=== PATIENT | female | born 2000 | race Hispanic/Latino ===

== ENCOUNTER → 2023-01-23 09:39 | Outpatient (CLI) | payer OTHER, SELFPAY ==
[2023-01-23 15:09] LABS: Urine N gonorrhoeae NOT DETECTED
[2023-01-23 15:32] LABS: Urine Chlamydia NOT DETECTED
== END ==
PROVIDERS: Visit Provider Specialist
DX: Z34.00 Encounter for supervision of normal first pregnancy, unspecified trimester (principal)
CPT/HCPCS: 87491; 87591

== ENCOUNTER → 2023-01-23 10:13 | Outpatient (CLI) | payer OTHER, SELFPAY ==
[2023-01-23 11:24] LABS: Add Manual Diff / Slide Review NO; Basophils Absolute Auto 0 /uL (0-100); Basophils Percent Auto 0.2 % (0-2); Eosinophils Absolute Auto 0 /uL (0-450); Eosinophils Percent Auto 0.5 % (2-4); Hematocrit 33.2 % (36-46); Hemoglobin 11.8 g/dL (12.0-16.0); Lymphocytes Absolute Auto 1700 /uL (1100-4500); Lymphocytes Percent Auto 18.5 % (25-40); Mean Corpuscular HGB Conc 35.6 % (30-36); Mean Corpuscular Hemoglobin 30.8 PG (26-34); Mean Corpuscular Volume 86.7 fL (80-100); Monocytes Absolute Auto 300 /uL (0-900); Monocytes Percent Auto 3.1 % (3-14); Neutrophils Absolute Auto 7100 /uL (1500-7000); Neutrophils Percent Auto 77.7 % (50-75); Platelet Count 144 X10^3/uL (150-400); Red Blood Cell Count 3.83 X10^6/uL (4.0-5.2); Red Cell Distribution Width 13.5 % (11.6-14.8); White Blood Cell Count 9.1 X10^3/uL (4.5-11.0)
[2023-01-23 17:21] LABS: Hepatitis B Surface Antigen NEGATIVE s/c (NEGATIVE); Rubella Antibody IgG 14.2 IU/mL (>15)
[2023-01-23 17:29] LABS: HIV 1 & 2 Ab/Ag 4th Gen Combo NEGATIVE (NEGATIVE); Hep C Virus Ab w/Reflex Quant NEGATIVE s/c (NEGATIVE)
[2023-01-24 06:09] LABS: RPR Screen Non Reactive (Non Reactive)
[2023-01-24 10:36] LABS: Varicella IgG Antibody 311 index (Immune >165)
[2023-01-25 20:37] LABS: Calc Gestational Age Ultrasound (.); Estriol, Free 1.71 ng/mL (.); Inhibin A, MoM 0.64 (.); Maternal Ethnicity Other (.); Maternal Weight 106 lbs (.); Number of Fetuses No (.); OSBR Risk 1 IN 10000 (.); Results Report (.); Test Results *Screen Negative* (.); hCG, MoM 0.68 (.); hCG, Serum 26917 mIU/mL (.)
== END ==
PROVIDERS: PCP Student in an Organized Health Care Education/Training Program; Referring Provider Obstetrics & Gynecology; Visit Provider Specialist
DX: Z34.00 Encounter for supervision of normal first pregnancy, unspecified trimester (principal)
CPT/HCPCS: 36415; 80055; 82105; 82677; 84702; 86336; 86787; 86803; 86850; 86900; 86901; 87086; 87389; 87491; 87591

== ENCOUNTER → 2023-02-22 12:12 | Outpatient (CLI) | payer OTHER, SELFPAY ==
--- NOTE | 2023-02-22 12:13 | DI.US.S_ITS ---
PROCEDURE: US OB >= 14 WEEKS FETUS INDICATIONS: 20 week anatomy scan OUTSIDE/PRIOR DATING DATA: Last menstrual period (LMP): 09/21/2022. LMP-based estimated date of delivery (RICARDO): 06/28/2023. The calculations are made using the clinical RICARDO of 06/28/2023. TECHNIQUE: Real-time scanning was performed of the fetus, with image documentation and biometric measurements. Endovaginal scanning: Performed COMPARISON: None. FINDINGS: General: A single living intrauterine gestation is present. Presentation: Transverse. Placenta: Placental position is posterior , without previa. Amniotic fluid index: 16.7 cm, normal range is 5-24 cm. Single deepest vertical pocket is 5.2 cm. heart rate: 153 beats per minute. Maternal cervical canal: 3.5 cm long. Normal lower limit is 2.5 cm. biometrics: Biparietal diameter: 5.1 cm, 21 weeks and 3 days Head circumference: 19.1 cm, 21 weeks and 2 days Abdominal circumference: 16.6 cm, 21 weeks and 4 days Femur length: 3.5 cm, 21 weeks and 1 day Clinically estimated gestational age: 22 weeks and 0 days Composite gestational age from present scan: 21 weeks and 3 days Estimated weight and percentile: 418 g, 16th percentile Anatomic survey: Neuro: Ventricles are non-dilated at less than 10 mm. Cisterna magna is normal at 3-11 mm. Cerebellum is normal in size and morphology. Nuchal skin fold: Normal at less than 6 mm between 14-21 weeks gestational age. Face: Nose and lips, facial profile are normal. Spine: No evidence for spina bifida. Heart: 4-chambered heart is present, with normal ventricular outflow tracts. Diaphragm: Diaphragm is intact. Stomach: Left-sided stomach is present. Kidneys: No hydronephrosis. Normal is less than 5 mm in 2nd trimester, less than 7 mm in 3rd trimester. Cord: 3-vessel cord has orthotopic insertion. Bladder: Normal in size. Extremities: All 4 extremities identified. IMPRESSION: 1. Single live intrauterine at twenty-one weeks and 3 days. 2. Normal anatomic survey. Estimated weight is at the 16th percentile. We strive to produce accurate, complete, and clear reports of imaging services. To assist us in improving patient care, this report was composed using standard report templates and voice recognition software. Therefore, it may contain abnormal punctuation, insertions and/or omissions. Occasional wrong-word or sound-alike substitutions may occur. Though we review the report and make efforts to correct it, we do recommend that the report be read carefully in proper context to recognize any text inaccuracies. Dictated by: Deondre Chauhan M.D. on 02/28/2023 at 13:25 Approved by: Deondre Chauhan M.D. on 02/28/2023 at 13:30
== END ==
PROVIDERS: PCP Student in an Organized Health Care Education/Training Program; Referring Provider Specialist; Visit Provider Specialist
DX: Z34.02 Encounter for supervision of normal first pregnancy, second trimester (principal); Z3A.21 21 weeks gestation of pregnancy
CPT/HCPCS: 76811

== ENCOUNTER → 2023-04-01 09:48 | Outpatient (CLI) | payer OTHER, SELFPAY ==
[2023-04-01 11:06] LABS: Hematocrit 34.7 % (36-46)
[2023-04-01 12:48] LABS: GTT (PREG) 1 Hour PP 50gm Dose 128 mg/dL (76-139)
== END ==
PROVIDERS: PCP Student in an Organized Health Care Education/Training Program; Referring Provider Student in an Organized Health Care Education/Training Program; Visit Provider Student in an Organized Health Care Education/Training Program
DX: Z34.92 Encounter for supervision of normal pregnancy, unspecified, second trimester (principal); Z3A.25 25 weeks gestation of pregnancy
CPT/HCPCS: 36415; 82950; 85014; 85018

== ENCOUNTER → 2023-06-13 10:07 | Outpatient (CLI) | payer OTHER, SELFPAY ==
[2023-06-14 11:02] LABS: Strep Grp B PCR NEG for Grp B Strep
== END ==
PROVIDERS: PCP Student in an Organized Health Care Education/Training Program; Visit Provider Student in an Organized Health Care Education/Training Program
DX: Z34.93 Encounter for supervision of normal pregnancy, unspecified, third trimester (principal); Z3A.37 37 weeks gestation of pregnancy
CPT/HCPCS: 87653

== ENCOUNTER 2023-06-25 19:07 | Inpatient (IN) | payer OTHER, SELFPAY ==
[2023-06-25 19:12] VITALS: BP 107/60
[2023-06-25 20:35] LABS: Add Manual Diff / Slide Review NO; Basophils Absolute Auto 0 /uL (0-100); Basophils Percent Auto 0.4 % (0-2); Eosinophils Absolute Auto 100 /uL (0-450); Eosinophils Percent Auto 0.7 % (2-4); Hemoglobin 12.8 g/dL (12.0-16.0); Lymphocytes Absolute Auto 1900 /uL (1100-4500); Mean Corpuscular HGB Conc 34.5 % (30-36); Mean Corpuscular Hemoglobin 30.1 PG (26-34); Mean Corpuscular Volume 87.2 fL (80-100); Monocytes Absolute Auto 500 /uL (0-900); Monocytes Percent Auto 5.8 % (3-14); Neutrophils Absolute Auto 6400 /uL (1500-7000); Neutrophils Percent Auto 72.1 % (50-75); Platelet Count 138 X10^3/uL (150-400); Red Blood Cell Count 4.25 X10^6/uL (4.0-5.2); Red Cell Distribution Width 13.2 % (11.6-14.8); White Blood Cell Count 8.9 X10^3/uL (4.5-11.0)
--- NOTE | 2023-06-25 20:38 | P.HPOB_ITS ---
OB HPI Date/Time Date of admission: 06/25/23 Date Patient Seen: 06/25/23 Time Patient Seen: 20:00 History of Present Condition Chief complaint: induction RICARDO Calculator 2 Estimated Delivery Date Method Current WG Current Estimate 06/28/23 LMP (Certain) 39w 4d : 1 Narrative: G1 here for elective induction of labor. Uncomplicated . No medical history. GBS negative. 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 care: good care Dating criteria OB: LMP confirmed by 2nd trimester US Obstetrical complications: none Medical complications OB: none Indications Indication for induction OB: other Other reason(s) for admission: Elective IOL Preadmission Labs Last OB Lab Results: 2 Blood Type O Positive 01/23/23 10:47 Antibody Screen Negative 01/23/23 10:47 Hematocrit 37.0 % (36-46) 06/25/23 20:25 Hemoglobin 12.8 g/dL (12.0-16.0) 06/25/23 20:25 Hepatitis B Surface Antigen Negative s/c (NEGATIVE) 01/23/23 10 :47 Hepatitis C Antibody Negative s/c (NEGATIVE) 01/23/23 10:47 Rubella Antibody 14.2 IU/mL (>15) L 01/23/23 10:47 Varicella-Zoster IgG Antibody 311 index (Immune >165) 01/23/23 10:47 Glucose 1 Hour 128 mg/dL (76-139) 04/01/23 11:00 Group B Streptococcus (PCR) Neg for grp b strep 06/13/23 10:07 -: Chlamydia screen: negative and Gonorrhea screen: negative Genetic Screens: Quad screen: Normal Evaluation Evaluation Baseline heart rate: 145 Variability: Average (6-10) monitor accelerations: Present Monitor Decelerations: Absent Contraction Frequency (minutes): 5 Uterine Contraction Intensity: Mild Category of Tracing: Reactive Status: Category l Dilation (cm): 1 Effacement (%): 50 Dilation: 1-2 cm Effacement: 40-50% station: -3 Position of cervix: posterior Consistency: medium Mcnulty score: 3 PFSH Surgical History (Updated 01/10/23 @ 11:10 by Sagrario Ohara RN) No pertinent past surgical history Family History (Updated 02/01/23 @ 20:42 by Irina Cornelius) Grandmother Cervical cancer Hypertension Hyperlipidemia Family/Other Lung cancer Mother Diabetes mellitus Hypertension Hyperlipidemia Grandmother Diabetes mellitus Grandfather Diabetes mellitus Family/Other Hyperlipidemia Social History marital status: number of children: 0 household members: spouse lives independently: Yes caregiver/support person: No housing: house pets and animals: Yes (1 cat) education level: college (some college) occupational status: unemployed current occupational exposures/hazards: No special seble needs: No travel history: recent (domestic only) seatbelt use: always water heater temp set < 120 deg: Yes working smoke detector in home: Yes fire extinguisher in home: No carbon monox detector in home: Yes firearms in home: No do you feel safe at home: Yes Smoking Status: Never smoker second hand exposure: No alcohol intake: never substance use type: does not use during the past year weight has: remained stable well-balanced diet: about half the time daily servings fruits/ve-4 caffeine: No Type(s) of exercise: none Meds Home Medications and Allergies Home Medications Medication Instructions Recorded Confirmed Type vitamin-ferrous sulfate tab PO 01/10/23 06/23/23 History 27 mg iron-folic acid 0.8 mg tablet Allergies Allergy/AdvReac Type Severity Reaction Status Date / Time Penicillins Allergy Intermediate Hives Verified 06/23/23 10:28 OB Exam Vital signs Blood Pressure: 107/60 Pulse Rate: 73 Temperature: 36.1 F Narrative Exam Narrative: Gravid. NAD, breathing easily. Objective Labs 06/25/23 20:25 Labs: Laboratory Results - last 24 hr 06/25/23 20:25 WBC 8.9 RBC 4.25 Hgb 12.8 Hct 37.0 MCV 87.2 MCH 30.1 MCHC 34.5 RDW 13.2 Plt Count 138 L Neut % (Auto) 72.1 Lymph % (Auto) 21.0 L Emery % (Auto) 5.8 Eos % (Auto) 0.7 L Baso % (Auto) 0.4 Neut # (Auto) 6400 Lymph # (Auto) 1900 Emery # (Auto) 500 Eos # (Auto) 100 Baso # (Auto) 0 Assessment and Plan Assessment and Plan Assessment and Plan narrative: G1 here for elective IOL at 39w4d. Uncomplicated . GBS negative. Category 1 tracing. -will start with 25 mcg of vag miso
[2023-06-25 20:47] VITALS: BP 107/60; PULSE 73; TEMP 2.3; TEMP 36.1
[2023-06-25] MEDS: miSOPROStoL 25 MCG TABLET VAG (20:58)
[2023-06-26] MEDS: miSOPROStoL 25 MCG TABLET VAG ×2 (00:59→07:27)
[2023-06-26 05:23] VITALS: BP 107/55; PULSE 57; RESP 16; TEMP 37.2
--- NOTE | 2023-06-26 08:29 | PM.OBPNLAB ---
Date/Time Date Patient Seen: 06/26/23 Time Patient Seen: 07:30 Pain Control Pain control: tolerating well Pelvic Exam Dilation (cm): 1 Effacement (%): 50 station: -3 Contractions Contractions on admission: regular Monitor mode: External Contraction frequency (min): 3 Contraction duration (min): 1 Contraction pattern: Irregular Contraction intensity: Mild Status status: Category l Heart Rate Baseline: 135 Monitor Accelerations: Present Monitor Decelerations: Absent Monitor Variability: Moderate Assessment and Plan Assessment: induction ongoing Plan: continuous present management Comments: Third dose of vaginal misoprostol given this AM. Will consider cook catheter if minimal change in 4 hours.
[2023-06-26] MEDS: LACTATED RINGERS 1,000 ML 100 ML IV ×2 (12:28→14:58)
[2023-06-26] MEDS: OXYTOCIN PREMIX 30 UNIT/500 ML PLAST..BAG IV (12:28)
--- NOTE | 2023-06-26 13:19 | PM.OBPNLAB ---
Date/Time Date Patient Seen: 06/26/23 Time Patient Seen: 12:30 Pain Control Pain control: tolerating well Pelvic Exam Dilation (cm): 2 Effacement (%): 60 station: -1 Amniotic membrane status: Intact Contractions Monitor mode: External Pitocin rate (mU/min): 2 Contraction frequency (min): 1 Contraction pattern: Regular Contraction intensity: Moderate Status status: Category l Heart Rate Baseline: 145 Monitor Accelerations: Present Monitor Decelerations: Absent Monitor Variability: Moderate Assessment and Plan Assessment: induction ongoing Plan: continuous present management Comments: -will start pitocin at this time
--- NOTE | 2023-06-26 14:21 | P.PCN_ITS ---
Regional Block Pre-procedure Procedure: Continuous Lumbar Epidural for L&D Attending OB provider: Summer Cardona PMH/ROS narrative: term IOL, FOB deploying tomorrow, no complications, no significant PMH. ASA Class: II Labs: Hct 37.0 % (36-46) 06/25/23 20:25 Plt Count 138 X10^3/uL (150-400) L 06/25/23 20:25 Medications: Current Medications Generic Name Dose Route Start Last Admin Trade Name Freq PRN Reason Stop Dose Admin Acetaminophen 650 mg 06/25/23 19:21 Acetaminophen 325 Mg Tablet PO Q4HR PRN Fever/Mild Pain (1-3) Calcium Carbonate 500 mg 06/25/23 19:21 Calcium Carbonate 500 Mg Tab PO Q2H PRN Dyspepsia Carboprost Tromethamine 250 mcg 06/25/23 19:21 Carboprost 250 Mcg/Ml Ampul IM Q90M PRN Bleeding Diphenhydramine HCl 25 mg 06/26/23 14:19 Diphenhydramine 50 Mg/Ml Vial IV Q10M PRN Pruritis Fentanyl 50 mcg 06/25/23 19:21 Fentanyl 100 Mcg/2 Ml Inj IV Q1H PRN Pain, Moderate (4-6) Lactated Ringer's 1,000 mls @ 100 mls/hr 06/25/23 19:30 06/26/23 12:28 Lactated Ringers IV 100 mls/hr CONT ELEN Administration Lactated Ringer's 1,000 mls @ 100 mls/hr 06/25/23 19:30 Lactated Ringers IV CONT ELEN Oxytocin/Lactated Ringer's 30 unit in 500 mls @ 200 mls/hr 06/25/23 19:21 Oxytocin Premix IV CONT PRN Bleeding Protocol Tranexamic Acid 1,000 mg/ 100 mls @ 200 mls/hr 06/25/23 19:21 Sodium Chloride IV NOW PRN Bleeding Oxytocin/Lactated Ringer's 30 unit in 500 mls @ 2 mls/hr 06/26/23 12:23 06/26/23 12:28 Oxytocin Premix IV 2 milliunit/min TITRATE ELEN 2 mls/hr Administration Protocol 2 MILLIUNIT/MIN FENT 2MCG/ML BUPIV 0.125% EPI 200 mcg in 100 mls @ 6 mls/hr 06/26/23 14:30 Fentanyl/Bupiv/Ns 2mcg/Ml - 0.125% EPIDURAL CONT ELEN Lidocaine HCl 20 ml 06/25/23 19:21 Lidocaine 1% 20 Ml INJ INTRA-OP PRN Post Delivery Methylergonovine Maleate 0.2 mg 06/25/23 19:21 Methylergonovine 0.2 Mg Tablet PO Q6HR PRN Heavy Bleeding Methylergonovine Maleate 0.2 mg 06/25/23 19:21 Methylergonovine 0.2 Mg/Ml Vial IM NOW PRN Bleeding Misoprostol 800 mcg 06/25/23 19:21 Misoprostol 200 Mcg Tablet MS NOW PRN Bleeding Misoprostol 400 mcg 06/25/23 19:21 Misoprostol 200 Mcg Tablet SL NOW PRN Bleeding Misoprostol 25 mcg 06/25/23 19:30 06/26/23 07:27 Misoprostol 25 Mcg Tablet VAG 25 mcg Q4H ELEN Administration Morphine Sulfate 2 mg 06/25/23 19:21 Morphine 2 Mg/Ml Inj IV Q4HR PRN Pain, Moderate (4-6) Nalbuphine HCl 2.5 mg 06/26/23 14:19 Nalbuphine 20 Mg/Ml Ampul IV Q10M PRN Pruritis Naloxone HCl 0.2 mg 06/25/23 19:21 Naloxone 0.4 Mg/Ml Vial IV Q2MIN PRN Opiate Reversal Ondansetron HCl 4 mg 06/25/23 19:21 Ondansetron 4 Mg/2 Ml Inj IV Q4HR PRN Nausea And Vomiting Oxytocin 10 unit 06/25/23 19:21 Oxytocin 10 Unit/Ml Vial IM NOW PRN Bleeding Zolpidem Tartrate 5 mg 06/25/23 19:21 Zolpidem 5 Mg Tablet PO BEDTIME PRN Sleep Allergies: Allergies Allergy/AdvReac Type Severity Reaction Status Date / Time Penicillins Allergy Intermediate Hives Verified 06/23/23 10:28 Procedure Insertion date: 06/26/23 Insertion time: 14:38 Prep/Local: betadine x3 and 1% lidocaine Interspace: L3-4 Patient position: sitting Needle: 18 gauge [employer] (CSE:27g Pencan through [employer], clear CSF, 2.5mg PF bupiv) Loss of resistance with: saline ALBERTINA at (cm): 4 Catheter placed at SKIN (cm): 10 Catheter in SPACE (cm): 6 Insertion: No CSF, No Blood, No Paresthesia with insertion, No Paresthesia with injection and No Test dose reaction Initial Medications TEST DOSE time: 14:40 TEST DOSE: 1.5% lidocaine with epinephrine 1:200k (mL): 3 BOLUS DOSE time: 14:45 BOLUS DOSE (mL): 5 BOLUS DOSE med: other (infusate) Infusion INFUSION: 0.125% bupivacaine and with fentanyl 2 mcg/mL Initial rate (mL/hr): 8 Subsequent interventions: PCEA initial setting 8mL/h+3mL PCEA Post-procedure Anesthesia date START: 06/26/23 Anesthesia time START: 14:25 Anesthesia date END: 06/26/23 Anesthesia time END: 17:41 Post-procedure Anesthesia Assessment: Yes CV function: HR/BP stable, Yes Resp function: RR/sat/airway adequate, Yes Post-op hydration adequate, Yes Pain control adequate, Yes Nausea & vomiting absent, Yes Temperature > 36 C, Yes Mental status appropriate and No Anesthesia complications
[2023-06-26] MEDS: FENT 2MCG/ML BUPIV 0.125% EPI 200 MCG/100 ML PLAST..BAG 6 MCG EPIDURAL (14:55)
--- NOTE | 2023-06-26 18:06 | PM.OBPRVD ---
Labor & Delivery Delivery date: 06/26/23 Intrapartal Events: None Cervical ripening method: per misoprostal protocol Induction method: per pitocin protocol Delivery monitor: external FHT Route of delivery: Episiotomy description: None L&D Laceration Description: Perineal - 2nd Degree Delivery repair: vicryl Estimated blood loss (mL): 200 Anesthesia Type: Epidural Narrative: Patient was found to be complete. She pushed over two contractions and delivered a vigorous male . Cord clamping was delayed until the cord stopped pulsating per patient's request around 7 minutes following delivery. Placenta delivered at 10 minutes . Second degree perineal laceration was repaired with 3-0 vicryl. Uterine tone was firm and bleeding was minimal. Plan for aftercare: Routine care
[2023-06-26] MEDS: DERMOPLAST SPRAY 20% 60 ML 1 SPRAY TOP (21:52)
[2023-06-26] MEDS: ACETAMINOPHEN 325 MG TABLET 650 MG PO (21:53)
[2023-06-26] MEDS: LANOLIN OINT 7 GM 1 APPLIC TOP (21:53)
[2023-06-26] MEDS: IBUPROFEN 600 MG TABLET PO (21:54)
[2023-06-27] MEDS: IBUPROFEN 600 MG TABLET PO ×2 (03:36→11:14)
[2023-06-27] MEDS: ACETAMINOPHEN 325 MG TABLET 650 MG PO ×2 (03:37→11:14)
--- NOTE | 2023-06-27 08:19 | P.DS_ITS ---
Discharge Providers Provider Date of admission: 06/25/23 19:07 Discharge Date: 06/27/23 Primary care physician: Summer Cardona MD Consults: 06/25/23 19:23 Consult to Anesthesiology Urgent Comment: Consulting Provider: Anesthesiologist Reason for consultation: Epidural 06/27/23 18:03 Consult to Design [employer] Routine Comment: Discharge provider: Summer Cardona MD Summary Hospital Course Date Patient Seen: 06/27/23 Time Patient Seen: 07:30 Diagnoses: Term , vaginal delivery Hospital Course: G1 now P1 with uncomplicated presented for elective IOL. Induced with misoprostol x 3 and pitocin. SROM. She progressed to complete and had a with 2nd degree perineal tear. Recovered well without complications. well. Peripartum Data Infant Delivery Method: Natural Vaginal Laceration Description: Perineal - 2nd Degree complications: none Time Spent with Patient Time attestation: Total time spent providing and/or coordinating discharge services: Time spent: Greater than 30 minutes Objective Labs 06/25/23 20:25 Exam Narrative Exam Narrative: Fundus firm below umbilicus. Resting comfortably in bed. Discharge Plan Discharge Plan Patient Disposition: Home Discharge orders & Medications Prescriptions: New acetaminophen 325 mg Tablet 650 mg PO Q6HR PRN (Reason: Pain, Mild (1-3)) 7 Days Qty: 60 0RF ibuprofen 600 mg Tablet 600 mg PO Q6HR PRN (Reason: Pain, Mild (1-3)) 7 Days Qty: 30 0RF Continued vit-ferrous sulfat-FA 27 mg iron- 0.8 mg tablet See Rx Instructions .ROUTE .COMPLEX Rx Instructions: per MD orders Follow up/Referrals: Summer Cardona MD [Primary Care Provider] - ( Appt w/ Dr. Cardona: @ 2pm) Visit Report/Discharge Packet Stand Alone Forms: Discharge: Care, Patient Portal/API, Stroke Signs & Symptoms Discharge Data Primary Care Provider: Summer Cardona
[2023-06-27] MEDS: PRENATAL VIT,CALC/IRON/FOLIC 1 TABLET 1 TAB PO (09:03)
[2023-06-27] MEDS: MEASLES,MUMPS,RUBELLA VACC/PF 0.5 ML VIAL SUBCUT (14:25)
== END 2023-06-27 15:04 | disposition home or self-care (01) | DRG 807 ==
PROVIDERS: Admitting Provider Student in an Organized Health Care Education/Training Program; PCP Student in an Organized Health Care Education/Training Program; Referring Provider Student in an Organized Health Care Education/Training Program; Visit Provider Student in an Organized Health Care Education/Training Program
DX: O70.1 Second degree perineal laceration during delivery (principal); Z37.0 Single live birth; Z3A.39 39 weeks gestation of pregnancy
CPT/HCPCS: 36415; 59050; 59200; 59400; 85025; 86850; 86900; 86901; G0379; J2590